=== PATIENT | male | born 1995 | race American Indian/Alaskan Native ===

== ENCOUNTER 2017-05-29 09:33 | Emergency (ER) | payer SELFPAY ==
[2017-05-29 10:50] VITALS: BP 121/70
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
== END 2017-05-29 13:19 | disposition left against medical advice (07) ==
LOC: ED 09:33
DX: M79.1 Myalgia (principal); Z53.21 Procedure and treatment not carried out due to patient leaving prior to being seen by health care provider

== ENCOUNTER 2020-03-21 09:52 | Emergency (ER) | payer SELFPAY ==
[2020-03-21 10:03] VITALS: BP 121/67
[2020-03-21 10:15] LABS: Bilirubin,Urine NEG (Negative); Blood,Urine SM (Negative); Color,Urine Yellow (Yellow); Mucus,Urine 2+ /HPF; Protein,Urine <15 mg/dL mg/dL (Negative); Urobilinogen,Urine < 2.0 mg/dL (<2.0)
--- NOTE | 2020-03-21 10:21 | Emergency Department Report ---
Chief Complaint: Urogenital-Male Stated Complaint: BLOOD IN URINE Time Seen by Provider: 03/21/20 10:15 - HPI History of Present Illness: Patient is a 24-year-old male presents emergency room complaints of one episode of hematuria 2 days ago but he has not seen any since then. He denies any dysuria, penile discharge, abdominal pain, pain or swelling in the testicles, nausea, vomiting, diarrhea, fever, urinary frequency, odor to the urine. He states that he is sexually active without protection. No past medical history. No allergies medications. Vitals are normal UA ordered prior to my examination and is within normal limits There is no white blood cells, no red blood cells, no protein, no significant ketones, no signs of dehydration On exam: Non toxic appearing, no acute distress atraumatic, normocephalic normal appearance of the eyes, EOMI, no periorbital edema or ecchymosis moist mucus membranes No respiratory distress, no accessory muscle use A&O x4, no focal neuro deficit Patient is presenting for one episode of hematuria that occurred 2 days ago, he states that he has been urinating normally since then He denies any associated symptoms He denies any dysuria, penile discharge, abdominal pain, pain or swelling in the testicles, nausea, vomiting, diarrhea, fever, urinary frequency, odor to the urine. His UA was ordered prior to my examination and is within normal limits Given that this is a young male, STD is a consideration, he will need to have a full STD panel performed by clinic or the health department advised pt Please follow-up with the clinic or the health department in order to receive a full STD panel. Follow-up with your primary care doctor. Please have any partner tested and treated as well. Avoid sexual intercourse. Return to emergency room for any worsening symptoms. Medical screening examination performed and there is no threat to life or limb at this time - Exam Vital Signs: Vital Signs 03/21/20 10:01 Temperature 98.4 F Pulse Rate 71 Respiratory 20 Rate Blood Pressure 121/67 O2 Sat by Pulse 96 Oximetry MSE screening note: Focused history and physical exam performed. Due to findings the following was ordered: ED Disposition for MSE Clinical Impression: Encounter for medical screening examination Disposition: MED SCREENING EXAM-LEFT Is pt being admited?: No Does the pt Need Aspirin: No Condition: Stable Additional Instructions: Please follow-up with the clinic or the health department in order to receive a full STD panel. Follow-up with your primary care doctor. Please have any partner tested and treated as well. Avoid sexual intercourse. Return to emergency room for any worsening symptoms. Ullink Address: [address] [place] [id number] Referrals: [facility] [Provider Group] - 2-3 Days [facility] [Outside] - 2-3 Days Time of Disposition: 10:20 Print Language: BANGLADESHI
== END 2020-03-21 10:20 | disposition left against medical advice (07) ==
LOC: ED 09:52
DX: R31.9 Hematuria, unspecified (principal); Z53.21 Procedure and treatment not carried out due to patient leaving prior to being seen by health care provider
CPT/HCPCS: 81001

== ENCOUNTER 2020-10-24 16:32 | Emergency (ER) | payer SELFPAY ==
[2020-10-24 17:02] VITALS: BP 119/77
--- NOTE | 2020-10-24 17:30 | Emergency Department Report ---
ED ENT HPI - General Stated complaint: SORE THROAT Time Seen by Provider: 10/24/20 17:19 Source: patient Mode of arrival: Ambulatory Limitations: No Limitations - History of Present Illness Initial comments: Patient is a 25-year-old male who presents emergency room complaints of a sore throat that began 2 months ago. He has associated discomfort with swallowing but is still able to tolerate p.o. intake. He denies any fever, cough, vomiting, diarrhea. He denies any past medical history. No allergies to medications. He states he is only sexually active with women and does not perform any oral intercourse. - Related Data Previous Rx's Medication Instructions Recorded Last Taken Type Fluconazole [Diflucan TAB] 100 mg PO QDAY 7 Days #7 tablet 10/24/20 Unknown Rx Nystatin [Nystatin SUSP] 10 ml PO TID 10 Days #1 bottle 10/24/20 Unknown Rx Allergies Allergy/AdvReac Type Severity Reaction Status Date / Time No Known Allergies Allergy Verified 03/21/20 09:59 ED Dental HPI - General Stated complaint: SORE THROAT Time Seen by Provider: 10/24/20 17:19 - Related Data Previous Rx's Medication Instructions Recorded Last Taken Type Fluconazole [Diflucan TAB] 100 mg PO QDAY 7 Days #7 tablet 10/24/20 Unknown Rx Nystatin [Nystatin SUSP] 10 ml PO TID 10 Days #1 bottle 10/24/20 Unknown Rx Allergies Allergy/AdvReac Type Severity Reaction Status Date / Time No Known Allergies Allergy Verified 03/21/20 09:59 ED Review of Systems ROS: Stated complaint: SORE THROAT Other details as noted in HPI Comment: All other systems reviewed and negative ED Past Medical Hx - Surgical History Additional Surgical History: FACIAL SURGERY - Social History Smoking Status: Current Every Day Smoker Substance Use Type: Alcohol, Marijuana - Medications Home Medications: Home Medications Medication Instructions Recorded Confirmed Last Taken Type Fluconazole [Diflucan TAB] 100 mg PO QDAY 7 Days #7 tablet 10/24/20 Unknown Rx Nystatin [Nystatin SUSP] 10 ml PO TID 10 Days #1 bottle 10/24/20 Unknown Rx ED Physical Exam - General Limitations: No Limitations General appearance: alert, in no apparent distress - Head Head exam: Present: atraumatic, normocephalic - Eye Eye exam: Present: normal appearance - ENT ENT exam: Present: TM's normal bilaterally, normal external ear exam, other (there are two shallow ulcerations present to the hard palate, there is erythema and mild tonsilar hypertrophy, uvula is midline, no uvular edema or deviation) - Respiratory Respiratory exam: Absent: respiratory distress, accessory muscle use - Neurological Exam Neurological exam: Present: alert, oriented X3 - Psychiatric Psychiatric exam: Present: normal affect, normal mood - Skin Skin exam: Present: warm, dry, intact ED Course Vital Signs 10/24/20 17:00 Temperature 98.3 F Pulse Rate 84 Respiratory 16 Rate Blood Pressure 119/77 [Right] O2 Sat by Pulse 100 Oximetry ED Medical Decision Making - Medical Decision Making Patient is a 25-year-old male who presents emergency room complaints of a sore throat that began 2 months ago. He has associated discomfort with swallowing but is still able to tolerate p.o. intake. He denies any fever, cough, vomiting, diarrhea. He denies any past medical history. No allergies to medications. He states he is only sexually active with women and does not perform any oral intercourse. Vitals are stable. On exam: there are two shallow ulcerations present to the hard palate, there is erythema and mild tonsilar hypertrophy, uvula is midline, no uvular edema or deviation. Examination appears that it could likely be consistent with oropharyngeal candidiasis. There are no signs of peritonsillar abscess or airway obstruction at this time. Symptoms have been ongoing for 2 months. Patient given prescription for medication. Advised patient Please use medication as prescribed. Follow-up with a research pharmacist. Follow-up with infectious disease doctor. You need to have outpatient HIV test performed. Return to emergency room for any new or worsening symptoms. Critical care attestation.: If time is entered above; I have spent that time in minutes in the direct care of this critically ill patient, excluding procedure time. ED Disposition Clinical Impression: Hard palate ulcer, Oropharyngeal candidiasis, Sore throat Disposition: HOME / SELF CARE / HOMELESS Is pt being admited?: No Does the pt Need Aspirin: No Condition: Stable Instructions: Oral Thrush, Adult Additional Instructions: Please use medication as prescribed. Follow-up with a research pharmacist. Follow-up with infectious disease doctor. You need to have outpatient HIV test performed. Return to emergency room for any new or worsening symptoms. Prescriptions: Fluconazole [Diflucan TAB] 100 mg PO QDAY 7 Days #7 tablet Nystatin [Nystatin SUSP] 10 ml PO TID 10 Days #1 bottle Referrals: [facility] [Outside] - 2-3 Days JEN JIMÉNEZ MD [Referring] - 2-3 Days (ENT doctor) JR LEDESMA MD [Staff Physician] - 2-3 Days (ENT doctor) MARC HERNANDEZ MD [Staff Physician] - 2-3 Days Time of Disposition: 17:29 Print Language: BENGALI
== END 2020-10-24 17:47 | disposition home or self-care (01) ==
LOC: ED 16:32
DX: K12.1 Other forms of stomatitis (principal); B37.0 Candidal stomatitis; J02.9 Acute pharyngitis, unspecified; F17.200 Nicotine dependence, unspecified, uncomplicated; F12.90 Cannabis use, unspecified, uncomplicated; Z72.89 Other problems related to lifestyle; Z79.899 Other long term (current) drug therapy
CPT/HCPCS: 99281